=== PATIENT | female | born 2000 | race American Indian/Alaskan Native ===

== ENCOUNTER 2018-08-17 17:40 | Emergency (ER) | payer MEDICAID ==
[2018-08-17 18:03] VITALS: BP 112/78
--- NOTE | 2018-08-17 18:04 | Emergency Department Report ---
HPI - General Chief Complaint: Allergic Reaction Time Seen by Provider: 08/17/18 18:00 - HPI HPI: 17 y o female presents to ED cc of rash to arms today and vaginal irritation, itching and bumps x a while LMP: unknown ua/upt/ reevaluate ED Review of Systems ROS: Stated complaint: ALLERGIC REACTION ITCHING Other details as noted in HPI Critical care attestation.: If time is entered above; I have spent that time in minutes in the direct care of this critically ill patient, excluding procedure time. ED Disposition Condition: Stable
--- NOTE | 2018-08-17 18:05 | Emergency Department Report ---
Blank Doc - Documentation Documentation: 17 y o female presents to ED cc of rash to arms today and vaginal irritation, itching and bumps x a while LMP: unknown ua/upt/ reevaluate
[2018-08-17 19:44] LABS: Bacteria,Urine 2+ /HPF (Negative); Bilirubin,Urine NEG (Negative); Blood,Urine NEG (Negative); Color,Urine Yellow (Yellow); Mucus,Urine FEW /HPF; Protein,Urine <15 mg/dL mg/dL (Negative); Urobilinogen,Urine < 2.0 mg/dL (<2.0)
[2018-08-17 19:53] LABS: HCG Qualitative,Urine Negative (Negative)
[2018-08-17] MEDS ORDERED: BENADRYL PO ONE (23:17)
[2018-08-17] MEDS ORDERED: DELTASONE PO ONE (23:17)
--- NOTE | 2018-08-17 23:47 | Emergency Department Report ---
ED Allergic Reaction HPI - General Chief complaint: Allergic Reaction Stated complaint: ALLERGIC REACTION ITCHING Time Seen by Provider: 08/17/18 18:00 Source: patient Mode of arrival: Ambulatory Limitations: No Limitations - History of Present Illness Initial Comments: This is a 17-year-old female nontoxic, well nourished in appearance, no acute signs of distress presents to the ED with c/o of rash and vaginal itching. Patient states she was using Dove soap a new brand which started these symptoms 2 days. Patient stated that symptoms has improved. Patient states it is itching. Patient denies any drooling, hoarseness or facial swelling. Patient denies any trauma. She denies any fever, chills, nausea, vomiting, chest pain, shortness of breath, headache, stiff neck, numbness or tingling. Patient denies any urinary symptoms. Denies any STD concerns. Patient denies any allergies or PMH. MD Complaint: allergic reaction -: days(s) (2) Exposure: other (soap) Symptoms: rash, itching Severity: mild Treatment Prior to Arrival: none Previous Allergy History: none - Related Data Previous Rx's Medication Instructions Recorded Last Taken Type Fluconazole [Diflucan TAB] 150 mg PO ONCE #1 tablet 08/17/18 Unknown Rx Prednisone [predniSONE 10 mg 10 mg PO .TAPER #1 tab.ds.pk 08/17/18 Unknown Rx (6-Day Pack, 21 Tabs)] Sulfamethoxazole/Trimethoprim 1 each PO BID #14 tablet 08/17/18 Unknown Rx [Bactrim DS TAB] diphenhydrAMINE [Benadryl CAP] 25 mg PO Q6HR PRN #12 tab 08/17/18 Unknown Rx Allergies Allergy/AdvReac Type Severity Reaction Status Date / Time No Known Allergies Allergy Verified 08/17/18 18:00 ED Review of Systems ROS: Stated complaint: ALLERGIC REACTION ITCHING Other details as noted in HPI Constitutional: denies: chills, fever Eyes: denies: eye pain, eye discharge, vision change ENT: denies: ear pain, throat pain Respiratory: denies: cough, shortness of breath, wheezing Cardiovascular: denies: chest pain, palpitations Endocrine: no symptoms reported Gastrointestinal: denies: abdominal pain, nausea, diarrhea Genitourinary: discharge. denies: urgency, dysuria Musculoskeletal: denies: back pain, joint swelling, arthralgia Skin: rash. denies: lesions Neurological: denies: headache, weakness, paresthesias Psychiatric: denies: anxiety, depression Hematological/Lymphatic: denies: easy bleeding, easy bruising ED Past Medical Hx - Social History Smoking Status: Never Smoker Substance Use Type: None - Medications Home Medications: Home Medications Medication Instructions Recorded Confirmed Last Taken Type Fluconazole [Diflucan TAB] 150 mg PO ONCE #1 tablet 08/17/18 Unknown Rx Prednisone [predniSONE 10 mg 10 mg PO .TAPER #1 tab.ds.pk 08/17/18 Unknown Rx (6-Day Pack, 21 Tabs)] Sulfamethoxazole/Trimethoprim 1 each PO BID #14 tablet 08/17/18 Unknown Rx [Bactrim DS TAB] diphenhydrAMINE [Benadryl CAP] 25 mg PO Q6HR PRN #12 tab 08/17/18 Unknown Rx ED Physical Exam - General Limitations: No Limitations General appearance: alert, in no apparent distress - Head Head exam: Present: atraumatic, normocephalic - Eye Eye exam: Present: normal appearance - ENT ENT exam: Present: normal exam, normal orophraynx, other (no angioedema) - Neck Neck exam: Present: normal inspection, full ROM. Absent: tenderness, meningismus, lymphadenopathy - Respiratory Respiratory exam: Present: normal lung sounds bilaterally. Absent: respiratory distress, wheezes, rales, rhonchi, stridor, chest wall tenderness, accessory muscle use, decreased breath sounds, prolonged expiratory - Cardiovascular Cardiovascular Exam: Present: regular rate, normal rhythm, normal heart sounds. Absent: irregular rhythm, systolic murmur, diastolic murmur, rubs, gallop - External exam: Present: normal external exam, other (chaperoned Gore present during exam). Absent: erythema, swelling, lesions, lacerations, ecchymosis, bleeding Speculum exam: Present: cervical discharge, other (chaperoned Gore present during exam). Absent: erythema, vaginal discharge, vaginal bleeding, foreign body, tissue, laceration Bi-manual exam: Present: normal bi-manual exam, other (chaperoned Gore present during exam). Absent: cervical motion tendernes, adnexal tenderness, adnexal mass, uterine enlargement, uterine tenderness - Extremities Exam Extremities exam: Present: normal inspection, full ROM - Back Exam Back exam: Present: normal inspection, full ROM - Neurological Exam Neurological exam: Present: alert, oriented X3 - Psychiatric Psychiatric exam: Present: normal affect, normal mood - Skin Skin exam: Present: warm, dry, intact, normal color, rash (small area in the arms macular papular rash). Absent: erythema, urticaria, vesicles, petechiae, abrasion, ecchymosis ED Course Vital Signs 08/17/18 18:00 Temperature 98.3 F Pulse Rate 99 H Respiratory 18 Rate Blood Pressure 112/78 O2 Sat by Pulse 99 Oximetry - Reevaluation(s) Reevaluation #1: 08/17/18 23:46 Patient is speaking in full sentences with no signs of distress noted. ED Medical Decision Making - Medical Decision Making This is a 17-year-old female that presents with allergic reaction, vaginal yeast, and UTI. Patient is stable was examined by me. There is no facial swelling. No angioedema. There is no cellulitis. No hoarseness. Patient was instructed to return in 3-5 days for GC results. Stated is not concerned about GC and does not need empirically treating. Patient received Benadryl and prednisone in the ED. Patient was instructed not to operate any machinery after discharge due to possible drowsiness of Benadryl. Patient stated that a family member will drive patient home after discharge. Patient is discharged with prednisone and Benadryl. Patient was referred to Follow-up with a primary care doctor in 3-5 days or if symptoms worsen and continue return to emergency room as soon as possible. At time of discharge, the patient does not seem toxic or ill in appearance. No acute signs of distress noted. Patient agrees to discharge treatment plan of care. No further questions noted by the patient. Critical care attestation.: If time is entered above; I have spent that time in minutes in the direct care of this critically ill patient, excluding procedure time. ED Disposition Clinical Impression: Vaginal yeast infection UTI (urinary tract infection) Qualifiers: Urinary tract infection type: site unspecified Hematuria presence: without hematuria Qualified Code(s): N39.0 - Urinary tract infection, site not specified Allergic reaction Qualifiers: Encounter type: initial encounter Qualified Code(s): T78.40XA - Allergy, unspecified, initial encounter Disposition: TO HOME OR SELFCARE Is pt being admited?: No Does the pt Need Aspirin: No Condition: Stable Instructions: Vulvovaginal Candidiasis (ED), Urinary Tract Infection in Women (ED), Diphenhydramine (By mouth) Additional Instructions: Follow-up with a primary care doctor in 3-5 days or if symptoms worsen and continue return to emergency room as soon as possible. Return in 3-5 days for gonorrhea and chlamydia results. Prescriptions: diphenhydrAMINE [Benadryl CAP] 25 mg PO Q6HR PRN #12 tab PRN Reason: Itching Fluconazole [Diflucan TAB] 150 mg PO ONCE #1 tablet Prednisone [predniSONE 10 mg (6-Day Pack, 21 Tabs)] 10 mg PO .TAPER #1 tab.ds.pk Sulfamethoxazole/Trimethoprim [Bactrim DS TAB] 1 each PO BID #14 tablet Referrals: PRIMARY CARE, [Referring] - 3-5 Days PAULINE BETTENCOURT MD [Staff Physician] - 3-5 Days [facility] [Outside] - 3-5 Days [facility] [Outside] - 3-5 Days Forms: Work/School Release Form(ED)
== END 2018-08-17 23:55 | disposition home or self-care (01) ==
LOC: ED 17:40
DX: B37.3 Candidiasis of vulva and vagina (principal); N39.0 Urinary tract infection, site not specified
CPT/HCPCS: 81001; 81025; 87210; 87591; 99284; J7512

== ENCOUNTER 2019-01-12 16:37 | Emergency (ER) | payer MEDICAID ==
--- NOTE | 2019-01-12 17:22 | Event Note ---
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 Further treatment and workup at subsequent clinical providers discretion. Patient/guardian urged not to elope from the ED as their condition may be serious if not clinically assessed and managed. Initial orders include: UA, Urine preg, wet prep, G/C
[2019-01-12 18:21] LABS: HCG Qualitative,Urine Negative (Negative)
[2019-01-12 18:22] LABS: Bilirubin,Urine NEG (Negative); Blood,Urine SM (Negative); Color,Urine Yellow (Yellow); Mucus,Urine FEW /HPF; Protein,Urine <15 mg/dL mg/dL (Negative)
[2019-01-12 23:13] VITALS: BP 118/64
[2019-01-12] MEDS ORDERED: ROCEPHIN IM ONE (23:32)
[2019-01-12] MEDS ORDERED: XYLOCAINE 1% MPF 5 mL INFILTRATI ONE (23:32)
[2019-01-12] MEDS ORDERED: ZITHROMAX PO ONE (23:32)
--- NOTE | 2019-01-12 23:38 | Emergency Department Report ---
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 denies: vaginal bleeding, nausea/vomiting, fever/chills, headaches, loss of appetite, hematuria, rash, shortness of breath, syncope, weakness - Related Data Sexually active: Yes : 0 Para: 0 A: 0 Previous Rx's Medication Instructions Recorded Last Taken Type Fluconazole [Diflucan TAB] 150 mg PO ONCE #1 tablet 08/17/18 Unknown Rx Prednisone [predniSONE 10 mg 10 mg PO .TAPER #1 tab.ds.pk 08/17/18 Unknown Rx (6-Day Pack, 21 Tabs)] Sulfamethoxazole/Trimethoprim 1 each PO BID #14 tablet 08/17/18 Unknown Rx [Bactrim DS TAB] diphenhydrAMINE [Benadryl CAP] 25 mg PO Q6HR PRN #12 tab 08/17/18 Unknown Rx Fluconazole [Diflucan TAB] 150 mg PO ONCE #1 tablet 01/12/19 Unknown Rx Nitrofurantoin [place]/M-Cryst 100 mg PO BID 7 Days #14 capsule 01/12/19 Unknown Rx [Macrobid CAP] metroNIDAZOLE [Flagyl] 500 mg PO BID 10 Days #20 tab 01/12/19 Unknown Rx Allergies Allergy/AdvReac Type Severity Reaction Status Date / Time No Known Allergies Allergy Verified 01/12/19 16:40 ED Review of Systems ROS: Stated complaint: VAGINAL PROBLEMS Other details as noted in HPI Constitutional: denies: chills, fever Eyes: denies: eye pain, eye discharge, vision change ENT: denies: ear pain, throat pain Respiratory: denies: cough, shortness of breath, wheezing Cardiovascular: denies: chest pain, palpitations Endocrine: no symptoms reported Gastrointestinal: abdominal pain. denies: nausea, vomiting, diarrhea Genitourinary: urgency, dysuria, discharge, dyspareunia. denies: hematuria, abnormal menses Musculoskeletal: denies: back pain, joint swelling, arthralgia Skin: denies: rash, lesions Neurological: denies: headache, weakness, paresthesias Psychiatric: denies: anxiety, depression Hematological/Lymphatic: denies: easy bleeding, easy bruising ED Past Medical Hx - Past Medical History Previous Medical History?: No - Surgical History Past Surgical History?: No - Social History Smoking Status: Never Smoker Substance Use Type: None - Medications Home Medications: Home Medications Medication Instructions Recorded Confirmed Last Taken Type Fluconazole [Diflucan TAB] 150 mg PO ONCE #1 tablet 08/17/18 Unknown Rx Prednisone [predniSONE 10 mg 10 mg PO .TAPER #1 tab.ds.pk 08/17/18 Unknown Rx (6-Day Pack, 21 Tabs)] Sulfamethoxazole/Trimethoprim 1 each PO BID #14 tablet 08/17/18 Unknown Rx [Bactrim DS TAB] diphenhydrAMINE [Benadryl CAP] 25 mg PO Q6HR PRN #12 tab 08/17/18 Unknown Rx Fluconazole [Diflucan TAB] 150 mg PO ONCE #1 tablet 01/12/19 Unknown Rx Nitrofurantoin [place]/M-Cryst 100 mg PO BID 7 Days #14 capsule 01/12/19 Unknown Rx [Macrobid CAP] metroNIDAZOLE [Flagyl] 500 mg PO BID 10 Days #20 tab 01/12/19 Unknown Rx ED Physical Exam - General Limitations: No Limitations General appearance: alert, in no apparent distress - Head Head exam: Present: atraumatic, normocephalic - Eye Eye exam: Present: normal appearance - ENT ENT exam: Present: mucous membranes moist - Neck Neck exam: Present: normal inspection, full ROM. Absent: lymphadenopathy - Respiratory Respiratory exam: Present: normal lung sounds bilaterally, chest wall tenderness. Absent: respiratory distress, wheezes, stridor - Cardiovascular Cardiovascular Exam: Present: regular rate, normal rhythm, normal heart sounds. Absent: systolic murmur, diastolic murmur, rubs, gallop - GI/Abdominal GI/Abdominal exam: Present: soft, normal bowel sounds. Absent: distended, ten derness, guarding, rebound, rigid, bruit, hernia - Rectal Rectal exam: Present: deferred - External exam: Present: normal external exam Speculum exam: Present: erythema, vaginal discharge (green yellow ), cervical discharge (yellow ). Absent: vaginal bleeding, foreign body, tissue, laceration Bi-manual exam: Absent: cervical motion tendernes - Extremities Exam Extremities exam: Present: normal inspection, full ROM, normal capillary refill. Absent: tenderness, pedal edema, joint swelling, calf tenderness - Back Exam Back exam: Present: normal inspection, full ROM. Absent: tenderness, CVA tenderness (R), CVA tenderness (L), muscle spasm, paraspinal tenderness, vertebral tenderness, rash noted - Neurological Exam Neurological exam: Present: alert, oriented X3, CN II-XII intact, normal gait, reflexes normal. Absent: motor sensory deficit - Psychiatric Psychiatric exam: Present: normal affect, normal mood - Skin Skin exam: Present: warm, dry, intact, normal color. Absent: rash ED Course Vital Signs 01/12/19 01/12/19 01/12/19 17:20 23:00 23:11 Temperature 98.4 F 99.1 F Pulse Rate 77 77 Respiratory 16 18 22 Rate Blood Pressure 120/72 Blood Pressure 118/64 [Left] O2 Sat by Pulse 99 97 Oximetry ED Medical Decision Making - Medical Decision Making vaginal exam moderate erythema cervical discharge yellow green, wet prep, GC/CH cultures pending, plan: pt tx'd for STI exposure, dc to home with rx for flagyl, diflucan, pt will follow up with health department for HSV and HIV screening,, pt dc'd to home in stable condition at this time. Critical care attestation.: If time is entered above; I have spent that time in minutes in the direct care of this critically ill patient, excluding procedure time. ED Disposition Clinical Impression: Exposure to STD UTI (urinary tract infection) Qualifiers: Urinary tract infection type: acute cystitis Hematuria presence: without hematuria Qualified Code(s): N30.00 - Acute cystitis without hematuria Disposition: DC- TO HOME OR SELFCARE Is pt being admited?: No Does the pt Need Aspirin: No Condition: Stable Instructions: Urinary Tract Infection in Women (ED), Sexually Transmitted Diseases (ED) Prescriptions: Fluconazole [Diflucan TAB] 150 mg PO ONCE #1 tablet metroNIDAZOLE [Flagyl] 500 mg PO BID 10 Days #20 tab Nitrofurantoin [place]/M-Cryst [Macrobid CAP] 100 mg PO BID 7 Days #14 capsule Referrals: SEJAL WESTFALL MD [Primary Care Provider] - 3-5 Days [facility] [Outside] - 3-5 Days Forms: Work/School Release Form(ED) Time of Disposition: 23:51
== END 2019-01-13 00:26 | disposition home or self-care (01) ==
LOC: ED 16:37
DX: N39.0 Urinary tract infection, site not specified (principal); Z20.2 Contact with and (suspected) exposure to infections with a predominantly sexual mode of transmission
CPT/HCPCS: 81001; 81025; 87086; 87210; 87591; 96372; 99283; J0696

== ENCOUNTER 2020-09-29 19:44 | Outpatient (CLI) | payer MEDICAID ==
[2020-09-29 20:56] LABS: Bacteria,Urine 2+ /HPF (Negative); WBC,Urine < 1.0 /HPF (0.0-6.0)
[2020-09-29 20:58] LABS: Bilirubin,Urine NEG (Negative); Blood,Urine NEG (Negative); Color,Urine Straw (Yellow); Protein,Urine <15 mg/dL mg/dL (Negative); Urobilinogen,Urine < 2.0 mg/dL (<2.0)
[2020-09-29 21:02] LABS: Hematocrit 33.3 % (30.3-42.9); Hemoglobin 11.6 gm/dl (10.1-14.3); Mean Corpuscular HGB Conc 35 % (30-34); Mean Corpuscular Volume 94 fl (79-97); Platelet Count 216 K/mm3 (140-440); Red Blood Count 3.55 M/mm3 (3.65-5.03); Red Cell Distribution Width 12.9 % (13.2-15.2)
[2020-09-29] MEDS ORDERED: LACTATED RINGERS 1,000 ML ONE (21:03)
[2020-09-29] MEDS ORDERED: LACTATED RINGERS 1,000 ML IV ONE (21:05)
[2020-09-29 21:09] LABS: Alanine Aminotransferase 11 units/L (7-56); Uric Acid 5.6 mg/dL (3.5-7.6)
[2020-09-29 22:24] VITALS: BP 115/73
== END 2020-09-29 22:53 | disposition home or self-care (01) ==
LOC: TRG 19:44 → APU 20:04 → TRG 22:53
PROVIDERS: ATTEND Obstetrics & Gynecology
DX: O62.9 Abnormality of forces of labor, unspecified (principal); O26.893 Other specified pregnancy related conditions, third trimester; R51.9 Headache, unspecified; Z3A.37 37 weeks gestation of pregnancy
CPT/HCPCS: 36415; 59025; 81001; 82565; 83615; 84450; 84460; 84550; 85027; 96365; J0690; J7120; 96360

== ENCOUNTER 2020-10-11 02:09 | Inpatient (IN) | payer MEDICAID ==
[2020-10-11] MEDS ORDERED: LACTATED RINGERS 1,000 ML ONE (02:37)
[2020-10-11] MEDS ORDERED: LIDOCAINE (2%) 20 MG/1 ML VIAL 20 ML MDV INFILTRATI ONE (02:48)
[2020-10-11] MEDS ORDERED: TERBUTALINE 1 MG/1 ML INJ SUB-Q PRN (02:48)
[2020-10-11] MEDS ORDERED: ePHEDrine SULFATE 50 MG/1 ML INJ IV PRN ×2 (02:48→03:43)
[2020-10-11] MEDS ORDERED: AMPICILLIN/NS 2 GM/100 ML 2 GM/100 ML BAG IV ONE (02:48)
[2020-10-11] MEDS ORDERED: fentaNYL 100 MCG/2 ML INJ IV PRN (02:48)
[2020-10-11] MEDS ORDERED: OXYTOCIN DRIP 30 UNITS/500 ML BAG IV SCH ×2 (03:00→05:00)
--- NOTE | 2020-10-11 03:03 | History and Physical Report ---
History of Present Illness Date of examination: 10/11/20 Date of admission: 10/11/2020 Chief complaint: Contractions. History of present illness: 20 year old presents to L&D with complaint of contractions. Patient reports she receives care at [facility]. No records are available. Patient states her EDC is 10/16/2020. Patient denies any problems or complications during this . labs drawn upon admission. Patient requests epidural. Past History Past Medical History: no pertinent history Past Surgical History: no surgical history [facility] History: denies: chlamydia, gonorrhea, herpes, HIV, syphilis, trichomonas Family/Genetic History: none Social history: single, full code - Obstetrical History Expected Date of Delivery: 10/16/20 Actual Gestation: 39 Week(s) 2 Day(s) : 1 Para: 0 Hx # Term Pregnancies: 0 Number of Pregnancies: 0 Spontaneous Abortions: 0 Induced : 0 Number of Living Children: 0 Medications and Allergies Allergies Allergy/AdvReac Type Severity Reaction Status Date / Time No Known Allergies Allergy Verified 01/12/19 16:40 Home Medications Medication Instructions Recorded Confirmed Last Taken Type Fluconazole (Nf) [Diflucan TAB] 150 mg PO ONCE #1 tablet 08/17/18 Unknown Rx Prednisone [predniSONE 10 mg 10 mg PO .TAPER #1 tab.ds.pk 08/17/18 Unknown Rx (6-Day Pack, 21 Tabs)] Sulfamethoxazole/Trimethoprim 1 each PO BID #14 tablet 08/17/18 Unknown Rx [Bactrim DS TAB] diphenhydrAMINE [Benadryl CAP] 25 mg PO Q6HR PRN #12 tab 08/17/18 Unknown Rx Fluconazole (Nf) [Diflucan TAB] 150 mg PO ONCE #1 tablet 01/12/19 Unknown Rx Nitrofurantoin [place]/M-Cryst 100 mg PO BID 7 Days #14 capsule 01/12/19 Unknown Rx [Macrobid CAP] metroNIDAZOLE [Flagyl] 500 mg PO BID 10 Days #20 tab 01/12/19 Unknown Rx Active Meds: Active Medications Ephedrine Sulfate (Ephedrine Sulfate 50 Mg/1 Ml Inj) 10 mg IV Q2M PRN PRN Reason: Hypotension Fentanyl (Fentanyl 100 Mcg/2 Ml Inj) 100 mcg IV Q2H PRN PRN Reason: Pain,Severe (7-10) LABOR PAIN Lactated Ringer's (Lactated Ringers) 1,000 mls @ 125 mls/hr IV DIRECT SHALINI Oxytocin/Sodium Chloride (Pitocin/Ns 30 Unit/500ml) 30 units in 500 mls @ 40 mls/hr IV TITR SHALINI; Protocol Ampicillin Sodium (Ampicillin/Ns 2 Gm/100 Ml) 2 gm in 100 mls @ 100 mls/hr IV ONCE ONE; Protocol Stop: 10/11/20 03:47 Ampicillin Sodium (Ampicillin/Ns 1 Gm/50 Ml) 1 gm in 50 mls @ 100 mls/hr IV Q4H SHALINI; Protocol Terbutaline Sulfate (Terbutaline 1 Mg/1 Ml Inj) 0.25 mg SUB-Q ONCE PRN PRN Reason: Hyperstimulation/Hypertonicity Review of Systems All systems: negative (contractions) - Physical Exam Abdomen: Positive: normal appearance, soft. Negative: distention, tenderness, guarding, rigidity Genitourinary (Female): Positive: normal external genitalia, normal perenium. Negative: perineal/vulvar lesions Vagina: Positive: normal moisture Uterus: Positive: enlarged. Negative: tender Anus/Rectum: Positive: normal perianal skin Extremities: Positive: normal. Negative: tenderness, edema - Obstetrical FHR: category 1 Uterine Contraction Monitor Mode: External Cervical Dilatation: 8 Cervical Effacement Percentage: 90 station: -1 Uterine Contraction Pattern: Regular Uterine Contraction Intensity: Moderate Results Result Diagrams: 10/11/20 02:45 All other labs normal. Assessment and Plan A: at 39 weeks, 2 days gestation. Active labor. GBS unknown. P: Admit. GBS prophylaxis. Epidural. Anticipate . Request records when [facility] office opens.
[2020-10-11] MEDS: LACTATED RINGERS 1,000 ML IV SCH ×3 (03:11→08:47)
[2020-10-11 03:16] LABS: Hematocrit 36.1 % (30.3-42.9); Hemoglobin 12.5 gm/dl (10.1-14.3); Mean Corpuscular HGB Conc 35 % (30-34); Mean Corpuscular Volume 94 fl (79-97); Platelet Count 243 K/mm3 (140-440); Red Blood Count 3.83 M/mm3 (3.65-5.03); Red Cell Distribution Width 13.3 % (13.2-15.2)
[2020-10-11] MEDS ORDERED: NALOXONE 2 MG/2 ML INJ IV PRN (03:43)
--- NOTE | 2020-10-11 03:43 | Anesthesia Consultation ---
Anesthesia Consult and Med Hx Date of service: 10/11/20 - Airway Anesthetic Teeth Evaluation: Good ROM Head & Neck: Adequate Mental/Hyoid Distance: Adequate Mallampati Class: Class II Intubation Access Assessment: Probably Good - Pulmonary Exam CTA: Yes - Cardiac Exam Cardiac Exam: RRR - Pre-Operative Health Status ASA Pre-Surgery Classification: ASA2 Proposed Anesthetic Plan: Epidural - Pulmonary Hx Asthma: No COPD: No Hx Pneumonia: No - Cardiovascular System Hx Hypertension: No - Central Nervous System Hx Seizures: No Hx Psychiatric Problems: No - Endocrine Hx Renal Disease: No Hx End Stage Renal Disease: No Hx Hypothyroidism: No Hx Hyperthyroidism: No - Hematic Hx Anemia: No Hx Sickle Cell Disease: No - Other Systems Hx Alcohol Use: No
[2020-10-11 03:50] LABS: Hepatitis C Virus Antibody Non-Reactive (NonReactive)
[2020-10-11] MEDS ORDERED: fentaNYL-BUPIV 2 MCG/ML-0.125% 200 MCG/100 ML BAG EPIDURAL SCH (04:00)
--- NOTE | 2020-10-11 04:19 | Progress Note ---
Labor Epidural - Labor Epidural Start Time: 04:06 Stop Time: 04:12 Performed by:: ELEN CHACON Procedure: Patient is requesting epidural for labor pain. H&P, and labs reviewed. Procedure explained, questions answered, consent obtained. Patient in sitting position with blood pressure cuff and pulse ox on and working. Timeout performed immediately before start of procedure. Sterile chlorahexadine 0.5% prep/drape. 5 mL 1% lidocaine skin wheal at L[3]-L[4]. 18-gauge Tuohy epidural needle advanced to [id number] with saline at [7] cm. Epidural dexmedetomidine [30] mcg administered. Epidural catheter advanced to [12] cm, negative aspiration for blood and csf, negative test dose 3 ml 1.5% lidocaine with epinephrine. Sterile steri-strips and tegaderm applied, followed by tape reinforcement. Patient tolerated procedure well. Severe scoliosis.
[2020-10-11 05:18] LABS: Bilirubin,Urine NEG (Negative); Blood,Urine NEG (Negative); Color,Urine Yellow (Yellow); Protein,Urine <15 mg/dL mg/dL (Negative); Urobilinogen,Urine < 2.0 mg/dL (<2.0); WBC,Urine < 1.0 /HPF (0.0-6.0)
[2020-10-11 05:26] LABS: Amphetamine Screen,Urine Negative; Benzodiazepines Screen,Urine Negative; Cannabinoid Screen,Urine Negative; Cocaine Screen,Urine Negative; Methadone Screen,Urine Negative; Opiate Screen,Urine Negative
--- NOTE | 2020-10-11 05:54 | Event Note ---
Date: 10/11/20 SVE /-1. Patient is receiving low dose Pitocin for augmentation of labor. Patient is comfortable now that she has received epidural. Reassuring FHR tracing.
--- NOTE | 2020-10-11 06:50 | Event Note ---
Date: 10/11/20 Several late appearing FHR decelerations noted; moderate FHR variability and normal baseline rate. Patient positioned in left lateral position. Pitocin turned off. Oxygen per face mask at 10 LPM. No repetitive decelerations.
[2020-10-11 06:58] LABS: Alanine Aminotransferase 20 units/L (7-56); Blood Urea Nitrogen 4 mg/dL (7-17); Calcium 9.1 mg/dL (8.4-10.2); Hemolysis Index 18
[2020-10-11] MEDS ORDERED: AMPICILLIN/NS 1 GM/50 ML 1 GM/50 ML BAG IV SCH (07:00)
[2020-10-11 07:08] LABS: BUN/Creatinine Ratio 7
--- NOTE | 2020-10-11 07:54 | Event Note ---
Date: 10/11/20 Late decelerations resolved. Pitocin restarted at 2 milliunits per minute. SVE 9.5/100/-1. Reassuring FHR tracing. Care of patient turned over to Dr. Gallo.
[2020-10-11] MEDS ORDERED: MINERAL OIL 30 ML ORAL LIQD ONE (08:42)
--- NOTE | 2020-10-11 08:54 | Progress Note ---
Subjective - Subjective Date of service: 10/11/20 Interval history: AROM clear anterior lip/100%/0 pelvis: adequate Natalya Gallo MD Patient reports: movement normal Objective - Vital Signs Vital Signs: Vital Signs - 12hr 10/11/20 10/11/20 10/11/20 03:06 03:55 03:56 Pulse Rate 109 H 105 H Respiratory 18 Rate Blood Pressure 135/83 O2 Sat by Pulse 85 Oximetry 10/11/20 10/11/20 10/11/20 03:58 04:00 04:02 Pulse Rate 81 79 88 Respiratory Rate Blood Pressure 130/80 136/82 144/87 O2 Sat by Pulse 98 Oximetry 10/11/20 10/11/20 10/11/20 04:04 04:05 04:06 Pulse Rate 104 H 111 H 114 H Respiratory 18 Rate Blood Pressure 152/93 153/81 O2 Sat by Pulse 100 Oximetry 10/11/20 10/11/20 10/11/20 04:08 04:10 04:12 Pulse Rate 83 106 H 85 Respiratory Rate Blood Pressure 150/81 139/67 144/76 O2 Sat by Pulse 99 Oximetry 10/11/20 10/11/20 10/11/20 04:14 04:15 04:16 Pulse Rate 96 H 103 H 95 H Respiratory Rate Blood Pressure 135/78 147/87 O2 Sat by Pulse 100 Oximetry 10/11/20 10/11/20 10/11/20 04:18 04:20 04:22 Pulse Rate 88 77 97 H Respiratory Rate Blood Pressure 145/84 140/77 131/66 O2 Sat by Pulse 100 Oximetry 10/11/20 10/11/20 10/11/20 04:24 04:25 04:27 Pulse Rate 76 77 63 Respiratory Rate Blood Pressure 131/69 109/59 O2 Sat by Pulse 100 Oximetry 10/11/20 10/11/20 10/11/20 04:28 04:30 04:35 Pulse Rate 60 64 71 Respiratory Rate Blood Pressure 101/56 O2 Sat by Pulse 100 100 Oximetry 10/11/20 10/11/20 10/11/20 04:36 04:40 04:45 Pulse Rate 67 71 71 Respiratory Rate Blood Pressure 104/59 O2 Sat by Pulse 100 100 Oximetry 10/11/20 10/11/20 10/11/20 04:50 04:55 05:00 Pulse Rate 69 64 64 Respiratory Rate Blood Pressure O2 Sat by Pulse 100 100 100 Oximetry 10/11/20 10/11/20 10/11/20 05:05 05:10 05:11 Pulse Rate 65 67 65 Respiratory Rate Blood Pressure 104/52 O2 Sat by Pulse 100 100 Oximetry 10/11/20 10/11/20 10/11/20 05:15 05:20 05:25 Pulse Rate 64 68 72 Respiratory Rate Blood Pressure O2 Sat by Pulse 100 100 100 Oximetry 10/11/20 10/11/20 10/11/20 05:30 05:35 05:40 Pulse Rate 61 61 61 Respiratory Rate Blood Pressure O2 Sat by Pulse 100 100 100 Oximetry 10/11/20 10/11/20 10/11/20 05:41 05:45 05:50 Pulse Rate 58 L 71 63 Respiratory Rate Blood Pressure 99/63 O2 Sat by Pulse 100 100 Oximetry 10/11/20 10/11/20 10/11/20 05:55 06:00 06:05 Pulse Rate 65 65 71 Respiratory Rate Blood Pressure O2 Sat by Pulse 100 97 100 Oximetry 10/11/20 10/11/20 10/11/20 06:10 06:15 06:20 Pulse Rate 63 67 63 Respiratory Rate Blood Pressure O2 Sat by Pulse 100 100 100 Oximetry 10/11/20 10/11/20 10/11/20 06:23 06:25 06:30 Pulse Rate 73 62 62 Respiratory Rate Blood Pressure O2 Sat by Pulse 91 100 100 Oximetry 10/11/20 10/11/20 10/11/20 06:35 06:40 06:41 Pulse Rate 64 60 62 Respiratory Rate Blood Pressure 108/68 O2 Sat by Pulse 100 100 Oximetry 10/11/20 10/11/20 10/11/20 06:45 06:50 06:55 Pulse Rate 64 60 62 Respiratory Rate Blood Pressure O2 Sat by Pulse 100 100 100 Oximetry 10/11/20 10/11/20 10/11/20 07:00 07:05 07:10 Pulse Rate 67 61 62 Respiratory Rate Blood Pressure O2 Sat by Pulse 100 100 100 Oximetry 10/11/20 10/11/20 10/11/20 07:12 07:15 07:20 Pulse Rate 60 67 66 Respiratory Rate Blood Pressure 104/58 O2 Sat by Pulse 100 100 Oximetry 10/11/20 10/11/20 10/11/20 07:25 07:30 07:35 Pulse Rate 62 64 60 Respiratory Rate Blood Pressure O2 Sat by Pulse 100 100 100 Oximetry 10/11/20 10/11/20 10/11/20 07:40 07:45 07:50 Pulse Rate 66 62 61 Respiratory Rate Blood Pressure O2 Sat by Pulse 100 100 100 Oximetry 10/11/20 10/11/20 10/11/20 07:55 08:00 08:05 Pulse Rate 60 63 63 Respiratory Rate Blood Pressure O2 Sat by Pulse 100 100 100 Oximetry 10/11/20 10/11/20 10/11/20 08:10 08:15 08:20 Pulse Rate 63 62 63 Respiratory Rate Blood Pressure O2 Sat by Pulse 100 100 100 Oximetry 10/11/20 10/11/20 10/11/20 08:25 08:30 08:33 Pulse Rate 63 78 93 H Respiratory Rate Blood Pressure O2 Sat by Pulse 100 100 93 Oximetry 10/11/20 10/11/20 10/11/20 08:35 08:40 08:41 Pulse Rate 84 77 76 Respiratory Rate Blood Pressure 105/70 O2 Sat by Pulse 100 100 Oximetry 10/11/20 08:45 Pulse Rate 83 Respiratory Rate Blood Pressure O2 Sat by Pulse 100 Oximetry - Labs Labs: Abnormal Labs 10/11/20 10/11/20 02:45 06:11 MCH 33 H MCHC 35 H Sodium 136 L Carbon Dioxide 20 L BUN 4 L Alkaline Phosphatase 172 H Lactate Dehydrogenase 210 H Total Protein 6.2 L Albumin 3.0 L Laboratory Results - last 24 hr 10/11/20 10/11/20 10/11/20 02:45 02:45 02:45 WBC 10.5 RBC 3.83 Hgb 12.5 Hct 36.1 MCV 94 MCH 33 H MCHC 35 H RDW 13.3 Plt Count 243 Sodium Potassium Chloride Carbon Dioxide Anion Gap BUN Creatinine Estimated GFR BUN/Creatinine Ratio Glucose Uric Acid Calcium Total Bilirubin AST ALT Alkaline Phosphatase Lactate Dehydrogenase Total Protein Albumin Albumin/Globulin Ratio Urine Color Urine Turbidity Urine pH Ur Specific [place] Urine Protein Urine Glucose (UA) Urine Ketones Urine Blood Urine Nitrite Urine Bilirubin Urine Urobilinogen Ur Leukocyte Esterase Urine WBC (Auto) Urine RBC (Auto) U Epithel Cells (Auto) Urine Opiates Screen Urine Methadone Screen Ur Barbiturates Screen Ur Phencyclidine Scrn Ur Amphetamines Screen U Benzodiazepines Scrn Urine Cocaine Screen U Marijuana (THC) Screen Drugs of Abuse Note Syphilis IgG Antibody Nonreactive Hep Bs Antigen Hepatitis C Antibody Non-reactive HIV 1&2 Antibody Rapid HIV P24 Antigen Rubella IgG Antibody Immune Blood Type O POSITIVE Antibody Screen Negative 10/11/20 10/11/20 10/11/20 02:45 02:45 05:00 WBC RBC Hgb Hct MCV MCH MCHC RDW Plt Count Sodium Potassium Chloride Carbon Dioxide Anion Gap BUN Creatinine Estimated GFR BUN/Creatinine Ratio Glucose Uric Acid Calcium Total Bilirubin AST ALT Alkaline Phosphatase Lactate Dehydrogenase Total Protein Albumin Albumin/Globulin Ratio Urine Color Urine Turbidity Urine pH Ur Specific [place] Urine Protein Urine Glucose (UA) Urine Ketones Urine Blood Urine Nitrite Urine Bilirubin Urine Urobilinogen Ur Leukocyte Esterase Urine WBC (Auto) Urine RBC (Auto) U Epithel Cells (Auto) Urine Opiates Screen Negative Urine Methadone Screen Negative Ur Barbiturates Screen Negative Ur Phencyclidine Scrn Negative Ur Amphetamines Screen Negative U Benzodiazepines Scrn Negative Urine Cocaine Screen Negative U Marijuana (THC) Screen Negative Drugs of Abuse Note Disclamer Syphilis IgG Antibody Hep Bs Antigen Non-reactive Hepatitis C Antibody HIV 1&2 Antibody Rapid Non react HIV P24 Antigen Non react Rubella IgG Antibody Blood Type Antibody Screen 10/11/20 10/11/20 05:00 06:11 WBC RBC Hgb Hct MCV MCH MCHC RDW Plt Count Sodium 136 L Potassium 3.8 Chloride 103.7 Carbon Dioxide 20 L Anion Gap 16 BUN 4 L Creatinine 0.6 Estimated GFR > 60 BUN/Creatinine Ratio 7 Glucose 78 Uric Acid 5.0 Calcium 9.1 Total Bilirubin 0.40 AST 25 ALT 20 Alkaline Phosphatase 172 H Lactate Dehydrogenase 210 H Total Protein 6.2 L Albumin 3.0 L Albumin/Globulin Ratio 0.9 Urine Color Yellow Urine Turbidity Clear Urine pH 7.0 Ur Specific [place] 1.010 Urine Protein <15 mg/dl Urine Glucose (UA) Neg Urine Ketones Tr Urine Blood Neg Urine Nitrite Neg Urine Bilirubin Neg Urine Urobilinogen < 2.0 Ur Leukocyte Esterase Neg Urine WBC (Auto) < 1.0 Urine RBC (Auto) 1.0 U Epithel Cells (Auto) 1.0 Urine Opiates Screen Urine Methadone Screen Ur Barbiturates Screen Ur Phencyclidine Scrn Ur Amphetamines Screen U Benzodiazepines Scrn Urine Cocaine Screen U Marijuana (THC) Screen Drugs of Abuse Note Syphilis IgG Antibody Hep Bs Antigen Hepatitis C Antibody HIV 1&2 Antibody Rapid HIV P24 Antigen Rubella IgG Antibody Blood Type Antibody Screen
[2020-10-11] MEDS ORDERED: MINERAL OIL 30 ML ORAL LIQD PO ONE (09:00)
[2020-10-11] MEDS ORDERED: METHYLERGONOVINE MALEATE 0.2 MG/ML VIAL IM ONE ×2 (10:30)
--- NOTE | 2020-10-11 10:45 | Procedure Note ---
OB Delivery Note - Delivery Date of Delivery: 10/11/20 Surgeon: DARCY OCONNOR Building Official: SHREYAS EVANS Estimated blood loss: 500cc - Vaginal Delivery presentation: vertex Delivery position: OA Delivery augmentation: pitocin Delivery monitor: external FHT, external uterine Route of delivery: Delivery placenta: spontaneous Delivery cord: 3 umbilical vessels Episiotomy: none Delivery laceration: 2nd degree Delivery repair: vicryl Anesthesia: epidural Delivery comments: deep variables noted SVE C,C,+1 SCOTT present Counts correct X 2 live born male OA over intact perineum. Baby to mom's abdomen skin to skin. Cord blood obtained. Placenta and membrane delivered complete and intact, 3 vessel cord. Pit IVFs Uterus boggy Methergin IM given. Second degree laceration repaired with 2-0 vicryl usual fashion. Ice pack to perineum. 7/9, EBL 500, Wgt 7-0 Dr Oconnor given report. Mom and baby remain LDR stable FF @ umb Lochia moderate. - A at 1 minute: 7 at 5 minutes: 9 Infant Gender: Male (wgt 7-0 Frakes)
[2020-10-11] MEDS ORDERED: diphenhydrAMINE 25 MG CAP PO PRN (10:52)
[2020-10-11] MEDS ORDERED: MAGNESIUM HYDROXIDE (MOM) ORAL LIQD UDC PO PRN (10:52)
[2020-10-11] MEDS ORDERED: PROMETHAZINE 25 MG TAB PO PRN (10:52)
[2020-10-11] MEDS ORDERED: HYDROcodone/ACETAMINOPHEN 5-325 MG TAB PO PRN (10:52)
[2020-10-11] MEDS ORDERED: ONDANSETRON 4 MG/2 ML INJ IV PRN (10:52)
[2020-10-11] MEDS ORDERED: LANOLIN/ZINC/DIMETHICONE (LANSINOH) 7 GM TP PRN (10:52)
[2020-10-11] MEDS ORDERED: WITCH HAZEL/ GLYCERIN PAD TP PRN (10:52)
--- NOTE | 2020-10-11 11:19 | Event Note ---
Date: 10/11/20 I was in an emergent c/section and Gianna Garland CNM for [facility] attended the delivery. Natalya Gallo MD
[2020-10-11] MEDS: IBUPROFEN 600 MG TAB PO SCH ×2 (14:59→22:50)
--- NOTE | 2020-10-11 15:27 | Post Anesthesia Evaluation ---
- Post Anesthesia Evaluation Patient Participated: Yes Airway Patent: Yes Stable Respiratory Function: Yes Nausea/Vomiting: No Temp > 96.8F: Yes Pain Manageable: Yes Adequeate Hydration: Yes Anesthesia Complications: No Block Receding Appropriately: Yes
[2020-10-11] MEDS ORDERED: BENZOCAINE/MENTHOL 20/0.5% TOP SPRAY 56 GM TP PRN (18:19)
[2020-10-11 23:55] LABS: Hematocrit 30.2 % (30.3-42.9); Hemoglobin 10.1 gm/dl (10.1-14.3)
--- NOTE | 2020-10-12 10:32 | Progress Note ---
Assessment and Plan A: day 1 S/P . Anemia. P: Supplement with iron. Discharge patient home tomorrow if patient continues to do well. Subjective - Subjective Date of service: 10/12/20 Principal diagnosis: day 1 S/P Interval history: Doing well. No complaints. Patient reports: appetite normal, voiding normally, pain well controlled, flatus, ambulating normally, no dizzy ambulation, no nauseated : doing well Objective - Vital Signs Latest vital signs: Vital Signs Temp Pulse Resp BP BP Pulse Ox 10/12/20 08:25 97.6 F 72 18 114/76 98 10/12/20 00:56 98.5 F 78 20 109/63 100 10/11/20 21:15 98.1 F 74 18 114/81 10/11/20 15:59 16 10/11/20 14:59 16 10/11/20 14:55 122/78 10/11/20 13:58 152/88 10/11/20 12:25 99.2 F 62 16 147/93 100 10/11/20 11:52 80 146/82 10/11/20 11:51 79 95 10/11/20 11:48 77 87 10/11/20 11:46 71 99 10/11/20 11:43 82 73 L 10/11/20 11:41 78 84 10/11/20 11:36 84 97 10/11/20 11:31 78 100 10/11/20 11:30 108 H 80 L 10/11/20 11:26 105 H 98 10/11/20 11:23 83 82 L 10/11/20 11:21 70 100 10/11/20 11:17 99 H 76 L 10/11/20 11:16 90 100 10/11/20 11:11 95 H 92 10/11/20 11:06 73 84 10/11/20 11:02 96 H 131/76 10/11/20 11:01 84 97 10/11/20 10:56 112 H 80 L 10/11/20 10:55 104 H 69 L 10/11/20 10:51 86 271/137 100 10/11/20 10:50 95 H 90 10/11/20 10:45 85 73 L 10/11/20 10:40 80 99 10/11/20 10:35 85 100 Intake and Output 10/11/20 10/12/20 10/12/20 23:59 07:59 15:59 Intake Total 480 540 Balance 480 540 Intake: Intake, Free Water 480 540 Other: # Voids Void 2 1 - Exam Cardiovascular: Present: Regular rate, No murmurs Lungs: Present: Clear to auscultation Abdomen: Present: normal appearance, soft. Absent: distention, tenderness, guarding, rigidity Uterus: Present: normal, firm, fundal height below umbilicus. Absent: bogginess, tenderness Extremities: Present: normal. Absent: tenderness, edema - Labs Labs: Abnormal lab results 10/11/20 Range/Units 23:24 Hct 30.2 L (30.3-42.9) %
[2020-10-12] MEDS ORDERED: MEASLES, MUMPS & RUBELLA 12,500 UNIT/0.5 ML VACCINE SUB-Q ONE (10:52)
[2020-10-12] MEDS ORDERED: TETANUS,DIPH,PERTUSS(ACELL) VACCINE 0.5 ML SYRINGE IM ONE (10:53)
[2020-10-12] MEDS: IBUPROFEN 600 MG TAB PO SCH ×3 (11:00→23:54)
[2020-10-12] MEDS: FERROUS SULFATE 325 MG TAB PO SCH ×2 (11:34→22:10)
[2020-10-13] MEDS: IBUPROFEN 600 MG TAB PO SCH ×2 (05:47→10:10)
--- NOTE | 2020-10-13 06:36 | Progress Note ---
Assessment and Plan A: day 2 S/P . Anemia. P: Discharge patient home today. Discussed with patient discharge instructions and warning signs. Advised patient to avoid lifting, intercourse, and housework. Advised patient to continue to take her vitamin and iron supplements at home. Advised patient to follow up at [facility] in 4-6 weeks and sooner if needed. Patient voiced understanding of all instructions. Subjective - Subjective Date of service: 10/13/20 Principal diagnosis: day 2 S/P Interval history: Doing well. No complaints. Patient requests discharge home today. Patient reports: appetite normal, voiding normally, pain well controlled, flatus, ambulating normally, no dizzy ambulation, no nauseated Worden: doing well Objective - Vital Signs Latest vital signs: Vital Signs Temp Pulse Resp BP BP Pulse Ox 10/13/20 05:47 18 10/13/20 00:54 18 10/13/20 00:36 97.7 F 77 16 109/69 98 10/12/20 23:54 18 10/12/20 19:00 18 10/12/20 16:20 98.2 F 87 18 128/80 99 10/12/20 08:25 97.6 F 72 18 114/76 98 Intake and Output 10/12/20 10/12/20 10/13/20 15:59 23:59 07:59 Intake Total 360 240 Balance 360 240 Intake: Oral 120 Intake, Free Water 360 120 Other: Total, Intake Amount 120 # Voids Void 2 1 - Exam Cardiovascular: Present: Regular rate Lungs: Present: Clear to auscultation Abdomen: Present: normal appearance, soft. Absent: distention, tenderness, guarding, rigidity Uterus: Present: normal, firm, fundal height below umbilicus. Absent: bogginess, tenderness Extremities: Present: normal. Absent: tenderness
--- NOTE | 2020-10-13 06:39 | Discharge Summary ---
Providers - Providers Date of Admission: 10/11/20 02:48 Date of discharge: 10/13/20 Attending physician: RENEE MANZO 10/12/20 12:16 Consult to Case Management [CONS] Routine Services Needed at Discharge: Bag Patcher Notified:: Case management Additional Physician Instructions: [place] scale 11 possible depression Primary care physician: RENEE MANZO Hospitalization Reason for admission: active labor Delivery: Episiotomy: none Laceration: 2nd degree Other procedures: none complications: none Discharge diagnosis: IUP at term delivered Dorris baby: male Pertinent studies: Labs Hospital course: Normal hospital course. Condition at discharge: Good Disposition: DC-01 TO HOME OR SELFCARE - Discharge Diagnoses (1) Term delivered Status: Acute (2) Anemia Status: Acute Plan - Provider Discharge Summary Activity: routine, no sex for 6 weeks, no heavy lifting 4 weeks, no strenuous exercise Diet: routine Instructions: routine Additional instructions: Continue taking your vitamin and iron supplements at home. Follow up at [facility] in 4-6 weeks. Call your doctor immediately for: * Fever > 100.5 * Heavy vaginal bleeding ( >1 pad per hour) * Severe persistent headache * Shortness of breath * Reddened, hot, painful area to leg or breast - Follow up plan Follow up: RENEE MANZO MD [Primary Care Provider] - 6 Weeks
[2020-10-13] MEDS: FERROUS SULFATE 325 MG TAB PO SCH (10:10)
[2020-10-13 13:19] VITALS: BP 120/84
== END 2020-10-13 15:00 | disposition home or self-care (01) | DRG 775 ==
LOC: TRG 02:09 → APU 02:20 → LD 02:37 → TRG 02:48 → OB 12:18
PROVIDERS: ADMIT Obstetrics & Gynecology; ATTEND Obstetrics & Gynecology
PROC: 10E0XZZ Delivery of Products of Conception, External Approach (ICD-10-PCS; principal; 2020-10-11)
PROC: 0KQM0ZZ Repair Perineum Muscle, Open Approach (ICD-10-PCS; 2020-10-11)
PROC: 3E0R3BZ Introduction of Anesthetic Agent into Spinal Canal, Percutaneous Approach (ICD-10-PCS; 2020-10-11)
PROC: 00HU33Z Insertion of Infusion Device into Spinal Canal, Percutaneous Approach (ICD-10-PCS; 2020-10-11)
DX: O70.1 Second degree perineal laceration during delivery (principal); Z37.0 Single live birth; Z3A.39 39 weeks gestation of pregnancy; D64.9 Anemia, unspecified; Z20.822 Contact with and (suspected) exposure to COVID-19; O90.81 Anemia of the puerperium
CPT/HCPCS: 36415; 80053; 80307; 81001; 83615; 84550; 85014; 85018; 85027; 86592; 86706; 86762; 86803; 86850; 86900; 86901; 87806; G0378; J0290; J2210; J2405; J2590; J3010; J7120; U0003